=== PATIENT | female | born 1960 | race Caucasian/White ===

== ENCOUNTER 2023-05-22 17:19 | Emergency (ER) | payer BC ==
[2023-05-22 17:58] VITALS: TEMP 97
[2023-05-22] MEDS ORDERED: Compazine 10 MG/2 ML IV ONE (18:05)
[2023-05-22] MEDS ORDERED: TORAdol 30 mg Injection IV ONE (18:05)
[2023-05-22] MEDS ORDERED: Sodium Chloride 0.9% 1000 ML 1,000 ML IV STA (18:06)
[2023-05-22] MEDS ORDERED: BENADRYL 50 MG/ML IV ONE (18:06)
[2023-05-22] MEDS ORDERED: BENADRYL 50 MG/ML ONE (18:09)
[2023-05-22] MEDS ORDERED: TORAdol 30 mg Injection ONE (18:09)
[2023-05-22] MEDS ORDERED: Compazine 10 MG/2 ML ONE (18:09)
[2023-05-22] MEDS ORDERED: Sodium Chloride 0.9% 1000 ML 1,000 ML ONE (18:09)
[2023-05-22 18:36] LABS: Absolute Neutrophil Ct (ANC) 3.76 x10^3/uL (1.4-6.9); BASOPHIL % 0.7 % (0.0-0.4); Basophil (Absolute #) 0.04 x10^3/uL (0-0.4); Eosinophil % 4.9 % (0.00-5.0); Eosinophil (Absolute #) 0.28 x10^3/uL (0-0.5); Hematocrit 40.7 % (35-47); Hemoglobin 13.4 g/dL (12.0-16.0); IMMATURE GRAN # 0.03 x10^3u/L (0.00-0.03); IMMATURE GRAN % 0.5 % (0.00-0.4); Lymphocyte (Absolute #) 1.09 x10^3/uL (1.0-4.6); Lymphocytes % 19.2 % (24.0-44.0); Mean Cell Volume 92.3 fL (78-100); Mean Corpuscular Hemoglobin 30.4 pg (26-32); Mean Corpuscular Hgb Concent. 32.9 g/dL (32-36); Mean Platelet Volume 10.1 fL (7.5-11.0); Monocyte (Absolute #) 0.48 x10^3/uL (0.0-1.3); Monocytes % 8.5 % (0.0-12.0); Neutrophil % 66.2 % (36.0-66.0); Platelet Count 178 x10^3/uL (150-450); Red Blood Count 4.41 x10^6/uL (4.1-5.4); Red Cell Distribution Width 11.7 % (11.5-14.0); White Blood Count 5.7 x10^3/uL (4.0-10.5)
[2023-05-22 18:50] LABS: ALBUMIN 4.7 g/dL (3.5-5.0); ALKALINE PHOSPHATASE 61 U/L (38-126); ANION GAP 9.6 MEQ/L (5-15); BLOOD UREA NITROGEN 17 mg/dL (7-17); CHLORIDE 101 mmol/L (98-107); Calcium 9.3 mg/dL (8.4-10.2); Carbon Dioxide 30 mmol/L (22-30); Creatinine 1 0.73 mg/dL (0.52-1.04); EST GLOMERULAR FILTRATION RATE > 60.0 ML/MIN; Glucose 88 mg/dL (74-106); Potassium 3.7 mmol/L (3.5-5.1); SGOT/AST 28 U/L (14-36); SGPT/ALT 21 U/L (0-35); SODIUM 137 mmol/L (137-145); Total Protein 7.4 g/dL (6.3-8.2)
[2023-05-22 20:45] VITALS: PULSE 76; O2SAT 99
[2023-05-22 20:49] LABS: Appearance Cloudy (Clear); Bacteria Rare /HPF (None Seen); Bilirubin Negative (Negative); Blood Negative (Negative); Epithelial Cells Moderate /HPF (None Seen); Glucose, Urine Negative (Negative); Hyaline Casts NONE SEEN /LPF (0-2); Ketones Trace (Negative); Leukocyte Esterase Negative (Negative); Nitrite Negative (Negative); Ph 6.5 (4.6-8.0); Protein,Urine Dip Negative (Negative); RBC 0-2 /HPF (0-5); Specific Gravity >=1.030 (1.005-1.030); Urobilinogen 0.2 mg/dL (0.2); WBC 0-2 /HPF (0-5)
[2023-05-22 20:53] LABS: ADD URINE CULTURE? NO (NO)
--- NOTE | 2023-05-22 20:54 | ERPHSYRPT ---
- History of Present Illness Time Seen by Provider: 05/22/23 18:00 Source: patient Exam Limitations: no limitations Patient Subjective Stated Complaint: pt here for headache for 4 days now with high blood pressure, she has nasal surgery and tube placed in right ear on , states pain is to the left, Triage Nursing Assessment: pt alert, walked in, resp easy, holding left side of face, no edema noted Physician History: Patient is a 62-year-old female presents to emergency department for evaluation of a left-sided headache. Patient had right-sided nasal surgery and a right ear tube implanted on 5 days ago. Patient has had a headache for 4 days. Patient follow-up with her ENT who advised her to follow-up with her primary care doctor. Patient was advised to come to our ED for evaluation. Symptoms are mild to moderate in intensity. No specific worsening improving factors. Patient voices no other complaints or concerns at this time. Portions of this note were created with voice recognition technology. There may be grammatical, spelling, punctuation or sound alike errors Timing/Duration: today Severity: mild Associated Symptoms: denies symptoms Allergies/Adverse Reactions: No Known Drug Allergies Allergy (Unverified 05/22/23 17:59) Home Medications: Alendronate Sodium 70 mg [Fosamax 70 MG] 1 ea DAILY 05/22/23 [History] Desvenlafaxine Succinate [Pristiq ER] 50 mg PO DAILY 05/22/23 [History] Estradiol [Estrace] 1 ea DAILY 05/22/23 [History] Levothyroxine Sodium 112 Mcg [Synthroid 112 Mcg] 112 mcg PO DAILY 05/22/23 [History] Naltrexone HCl 25 mg PO DAILY 05/22/23 [History] buPROPion HCl [Wellbutrin Sr] 100 mg PO DAILY 05/22/23 [History] Hx Tetanus, Diphtheria Vaccination/Date Given: No Hx Influenza Vaccination/Date Given: No Hx Pneumococcal Vaccination/Date Given: No Immunizations Up to Date: Yes Travel Risk - International Travel Have you traveled outside of the country in past 3 weeks: No - Coronavirus Screening Are you exhibiting any of the following symptoms?: No Close contact with a COVID-19 positive Pt in past 14-21 Days: No - Vaccine Status Have you recieved a Covid-19 vaccination: Yes Driver License Reviewing Officer: Unknown - Vaccination Dates Date of 2cond Vaccination (if applicable): 2020 Dates if Unknown: ? - Review of Systems Constitutional: No Symptoms, No Fever, No Chills Eyes: No Symptoms Ears, Nose, & Throat: No Symptoms Respiratory: No Symptoms, No Cough, No Dyspnea Cardiac: No Symptoms, No Chest Pain, No Edema, No Syncope Abdominal/Gastrointestinal: No Abdominal Pain, No Nausea, No Vomiting, No Diarrhea Genitourinary Symptoms: No Symptoms, No Dysuria Musculoskeletal: No Symptoms, No Back Pain, No Neck Pain Skin: No Symptoms, No Rash Neurological: No Symptoms, No Dizziness, No Focal Weakness, No Sensory Changes Psychological: No Symptoms Endocrine: No Symptoms Hematologic/Lymphatic: No Symptoms Immunological/Allergic: No Symptoms All Other Systems: Reviewed and Negative - Past Medical History Pertinent Past Medical History: No Neurological History: No Pertinent History Cardiac History: No Pertinent History Respiratory History: No Pertinent History Endocrine Medical History: Hypothyroidism Musculoskeletal History: Osteoarthritis Other Medical History: LEFT KNEE PARTIAL REPLACEMENT 2008, 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, SPINE INFECTION 2019 - Past Surgical History Past Surgical History: Yes Musculoskeletal: Orthopedic Surgery Other Surgical History: shoulder,ear tube 2022,left knee replaced ,brease augmentation - Social History Smoking Status: Never smoker Exposure to second hand smoke: No Drug Use: none Patient Lives Alone: Yes - Nursing Vital Signs Nursing Vital Signs: Initial Vital Signs Temperature 97.0 F 05/22/23 17:57 Pulse Rate 78 05/22/23 17:57 Respiratory Rate 16 05/22/23 17:57 Blood Pressure 195/107 05/22/23 17:57 O2 Sat by Pulse Oximetry 99 05/22/23 17:57 Pain Scale Pain Intensity 4 - Physical Exam General Appearance: no apparent distress, alert Eye Exam: PERRL/EOMI, eyes nml inspection Ears, Nose, Throat Exam: normal ENT inspection, TMs normal, pharynx normal, moist mucous membranes Neck Exam: normal inspection, non-tender, supple, full range of motion Respiratory Exam: normal breath sounds, lungs clear, airway intact, No respiratory distress Cardiovascular Exam: regular rate/rhythm, normal heart sounds, normal peripheral pulses Gastrointestinal/Abdomen Exam: soft, normal bowel sounds, No tenderness, No mass Back Exam: normal inspection, normal range of motion, No CVA tenderness, No vertebral tenderness Extremity Exam: normal inspection, normal range of motion, pelvis stable Neurologic Exam: alert, oriented x 3, cooperative, normal mood/affect, sensation nml, No motor deficits Skin Exam: normal color, warm, dry, No rash Lymphatic Exam: No adenopathy SpO2 Interpretation: normal SpO2: 99 O2 Delivery: Room Air - Course Nursing assessment & vital signs reviewed: Yes - CT Exams Head CT Interpretation: Tele-radiologist Report (Normal head and CTV head exam) Ordered Tests: Active Orders 24 hr Category Date Time Status Camp Attendant STAT Care 05/22/23 18:05 Active IV Insertion STAT Care 05/22/23 18:04 Active Pulse Oximetry (ED) STAT Care 05/22/23 18:04 Active HEAD W/WO CONTRAST [CT] Stat Exams 05/22/23 18:09 Taken CBC W DIFF Stat Lab 05/22/23 18:33 Completed CMP Stat Lab 05/22/23 18:33 Completed UA W/RFX UR CULTURE Stat Lab 05/22/23 20:37 Completed Medication Summary Discontinued Medications Generic Name Dose Route Start Last Admin Trade Name Joshuaq PRN Reason Stop Dose Admin Diphenhydramine HCl 25 mg 05/22/23 18:06 05/22/23 18:15 Diphenhydramine Hcl 50 Mg/Ml Vial IV 05/22/23 18:07 50 mg STAT ONE Administration Diphenhydramine HCl Confirm 05/22/23 18:09 Diphenhydramine Hcl 50 Mg/Ml Vial Administered 05/22/23 18:10 Dose 50 mg .ROUTE .STK-MED ONE Sodium Chloride 1,000 mls @ 999 mls/hr 05/22/23 18:06 05/22/23 19:28 Sodium Chloride 0.9% 1000 Ml IV 05/22/23 19:06 Infused .Q1H1M STA Infusion Sodium Chloride Confirm 05/22/23 18:09 Sodium Chloride 0.9% 1000 Ml Administered 05/22/23 18:10 Dose 1,000 mls @ ud .ROUTE .STK-MED ONE Ketorolac Tromethamine 30 mg 05/22/23 18:05 05/22/23 18:14 Ketorolac Tromethamine 30 Mg/Ml Inj IV 05/22/23 18:06 30 mg STAT ONE Administration Ketorolac Tromethamine Confirm 05/22/23 18:09 Ketorolac Tromethamine 30 Mg/Ml Inj Administered 05/22/23 18:10 Dose 30 mg .ROUTE .STK-MED ONE Prochlorperazine Edisylate 10 mg 05/22/23 18:05 05/22/23 18:14 Prochlorperazine Edisylate 10 Mg/2 Ml Vial IV 05/22/23 18:06 10 mg STAT ONE Administration Prochlorperazine Edisylate Confirm 05/22/23 18:09 Prochlorperazine Edisylate 10 Mg/2 Ml Vial Administered 05/22/23 18:10 Dose 10 mg .ROUTE .STK-MED ONE Lab/Rad Data: Laboratory Result Diagrams 05/22/23 18:33 05/22/23 18:33 Laboratory Results 05/22/23 05/22/23 05/22/23 Range/Units 20:37 18:33 18:33 WBC 5.7 (4.0-10.5) x10^3/uL RBC 4.41 (4.1-5.4) x10^6/uL Hgb 13.4 (12.0-16.0) g/dL Hct 40.7 (35-47) % MCV 92.3 (78-100) fL MCH 30.4 (26-32) pg MCHC 32.9 (32-36) g/dL RDW 11.7 (11.5-14.0) % Plt Count 178 (150-450) x10^3/uL MPV 10.1 (7.5-11.0) fL Gran % 66.2 H (36.0-66.0) % Immature Gran % (Auto) 0.5 H (0.00-0.4) % Nucleat RBC Rel Count 0.0 (0.00-0.1) % Eos # (Auto) 0.28 (0-0.5) x10^3/uL Immature Gran # (Auto) 0.03 (0.00-0.03) x10^3u/L Absolute Lymphs (auto) 1.09 (1.0-4.6) x10^3/uL Absolute Monos (auto) 0.48 (0.0-1.3) x10^3/uL Absolute Nucleated RBC 0.00 (0.00-0.01) x10^3u/L Lymphocytes % 19.2 L (24.0-44.0) % Monocytes % 8.5 (0.0-12.0) % Eosinophils % 4.9 (0.00-5.0) % Basophils % 0.7 (0.0-0.4) % Absolute Granulocytes 3.76 (1.4-6.9) x10^3/uL Basophils # 0.04 (0-0.4) x10^3/uL Sodium 137 (137-145) mmol/L Potassium 3.7 (3.5-5.1) mmol/L Chloride 101 (98-107) mmol/L Carbon Dioxide 30 (22-30) mmol/L Anion Gap 9.6 (5-15) MEQ/L BUN 17 (7-17) mg/dL Creatinine 0.73 (0.52-1.04) mg/dL Estimated GFR > 60.0 ML/MIN Glucose 88 (74-106) mg/dL Calcium 9.3 (8.4-10.2) mg/dL Total Bilirubin 0.60 (0.2-1.3) mg/dL AST 28 (14-36) U/L ALT 21 (0-35) U/L Alkaline Phosphatase 61 (38-126) U/L Serum Total Protein 7.4 (6.3-8.2) g/dL Albumin 4.7 (3.5-5.0) g/dL Urine Color Yellow (Yellow) Urine Appearance Cloudy A (Clear) Urine pH 6.5 (4.6-8.0) Ur Specific [place] >=1.030 A (1.005-1.030) Urine Protein Negative (Negative) Urine Glucose (UA) Negative (Negative) mg/dL Urine Ketones Trace A (Negative) Urine Blood Negative (Negative) Urine Nitrite Negative (Negative) Urine Bilirubin Negative (Negative) Urine Urobilinogen 0.2 (0.2) mg/dL Ur Leukocyte Esterase Negative (Negative) U Hyaline Cast (Auto) NONE SEEN (0-2) /LPF Urine Microscopic RBC 0-2 (0-5) /HPF Urine Microscopic WBC 0-2 (0-5) /HPF Ur Epithelial Cells Moderate A (None Seen) /HPF Urine Bacteria Rare A (None Seen) /HPF Urine Culture Reflexed NO (NO) - Progress Progress: improved Progress Note: Patient is a 62-year-old female presents to emergency department for evaluation of a left-sided headache. Patient had right-sided nasal surgery and a right ear tube implanted on 5 days ago. Patient has had a headache for 4 days. Patient follow-up with her ENT who advised her to follow-up with her primary care doctor. Patient was advised to come to our ED for evaluation. Physical exam essentially unremarkable. No neurologic findings. In light of patient's recent procedure and relentless headache we performed a CTV to assess for cavernous sinus thrombosis. CT head negative. Patient reassessed. Headache resolved. Patient that she is ready for discharge. No indication for further work-up at this time. Repeat physical exam at discharge is within normal limits. We discussed outpatient/[id number] treatment options for recurrent headache. at bedside. They voiced no other complaints or concerns at this time. Portions of this note were created with voice recognition technology. There may be grammatical, spelling, punctuation or sound alike errors Complexity of problems addressed is moderate acute complicated No critical care time Complex of data reviewed and analyzed is moderate. Test ordered test reviewed. Clinical correlation made between test results and history and physical examination. Risk of complication and or risk of morbidity/mortality of patient management is moderate a prescription for Toradol forwarded to patient's pharmacy We will discharge home. Vital stable. Time spent to discharge patient approximately 15 minutes. Plan of care established for shared decision making. No social determinants of health present to impede follow-up. Portions of this note were created with voice recognition technology. There may be grammatical, spelling, punctuation or sound alike errors Counseled pt/family regarding: lab results, diagnosis, need for follow-up, rad results - Departure Departure Disposition: Home Clinical Impression: Headache Condition: Stable Critical Care Time: No Referrals: DOCTOR,NO FAMILY [Primary Care Provider] - Follow up/PCP as directed Additional Instructions: Discharge/Care Plan LIYAH QUINONES was seen on 05/22/23 in the Emergency Room. The patient was counseled regarding Diagnosis,Lab results, Imaging studies, need for follow up and when to return to the Emergency Room. Prescriptions given: Discharge Note I have spoken with the patient and/or caregivers. I have explained the patient's condition, diagnosis and treatment plan based on the information available to me at this time. I have answered the patient's and/or caregiver's questions and addressed any concerns. The patient and/or caregivers have as good understanding of the patient's diagnosis, condition and treatment plan as can be expected at this point. The vital signs have been stable. The patient's condition is stable and appropriate for discharge from the emergency department. The patient will pursue further outpatient evaluation with the primary care physician or other designated or consulting physician as outlined in the discharge instructions. The patient and/or caregivers are agreeable to this plan of care and follow-up instructions have been explained in detail. The patient and/or caregivers have received these instruction. The patient/and or caregivers are aware that any significant change in condition or worsening of symptoms should prompt an immediate return to this or the closest emergency department or call 911. Prescriptions: Ketorolac Trometh 10 mg Tab [TORAdol 10 MG TABLET] 10 mg PO TID 5 Days #15 tablet
[2023-05-22 21:02] VITALS: BP 131/81; RESP 20
--- NOTE | 2023-05-23 13:54 | XRAY ---
Indication: Headache. Status post nasal surgery. Cavernous sinus thrombosis. Initial CT head performed without contrast. Then conventional CTV head performed using 80 cc Isovue 370 contrast. 2-D sagittal and coronal reformatted images obtained. Additional 3-D reformatted images obtained using separate workstation. Comparison: None CT head without contrast demonstrates normal appearing brain parenchyma, ventricles, and bony calvarium for patient's age. Minimal fluid leveling both maxillary sinuses, right greater than left. Mastoid air cells are clear. Postcontrast images are negative for abnormal enhancing intra or extra-axial mass. Normal appearing alturas of [place]. Venous sinuses and drainage are normal in CTV appearance. Impression: Normal CT head without contrast exam with incidental minimal paranasal sinus disease. Normal CTV head with contrast exam.
== END 2023-05-22 21:24 | disposition home or self-care (01) ==
LOC: ED 17:19
DX: R51.9 Headache, unspecified (principal); Z79.899 Other long term (current) drug therapy
CPT/HCPCS: 36000; 36415; 70470; 80053; 81001; 85025; 93041; 94760; 96360; 96374; 96375; 99284; J1200; J1885